=== PATIENT | female | born 1935 | race Caucasian/White ===

== ENCOUNTER 2017-05-03 16:34 | Emergency (ER) | payer OTHER | END 2017-05-03 19:39 | disposition home or self-care (01) | LOC: ER 16:34 | DX: S81.851A Open bite, right lower leg, initial encounter (principal); F41.9 Anxiety disorder, unspecified; Z88.0 Allergy status to penicillin; Z88.2 Allergy status to sulfonamides; Z91.040 Latex allergy status; W55.51XA Bitten by raccoon, initial encounter | CPT/HCPCS: 90375; 90471; 90675; 90714; 99283 ==